=== PATIENT | female | born 1945 | race Caucasian/White ===

== ENCOUNTER 2021-05-24 13:20 | Emergency (ER) | payer MEDICARE, SELFPAY ==
[2021-05-24] VITALS (8 sets, daily range): BP systolic 119–148; BP diastolic 58–78; PULSE 59–75; RESP 13–21; TEMP 36.9; O2SAT 98–100; BMI 17.1
--- NOTE | 2021-05-24 13:34 | DI.RAD.S_ITS ---
PROCEDURE: XR CHEST 1V INDICATIONS: chest pain TECHNIQUE: One view of the chest was acquired. COMPARISON: [facility], CR, XR CHEST 2VW, 11/06/2015, 21:12. [facility], CR, XR CHEST 1 VIEW, 04/30/2021, 20:40. [facility], CR, XR CHEST 1 VIEW, 05/10/2021, 16:16. FINDINGS: Surgical changes and devices: None. Lungs and pleura: Lungs are clear, yet hyperexpanded. No pleural effusions or pneumothorax. Mediastinum: The cardiac contours are within normal limits. The aorta demonstrates calcification and tortuosity. Bones and chest wall: Age-appropriate bony degenerative changes are seen. No suspicious bony lesions. Overlying soft tissues appear unremarkable. IMPRESSION: Hyperexpanded lungs, without an acute cardiopulmonary process identified. Dictated by: Hilario Velasquez M.D. on 05/24/2021 at 12:50 Approved by: Hilario Velasquez M.D. on 05/24/2021 at 12:51
[2021-05-24 13:49] LABS: Add Manual Diff / Slide Review NO; Basophils Absolute Auto 100 /uL (0-100); Basophils Percent Auto 0.7 % (0-2); Eosinophils Absolute Auto 100 /uL (0-450); Eosinophils Percent Auto 0.9 % (2-4); Hematocrit 35.9 % (36-46); Hemoglobin 12.1 g/dL (12.0-16.0); Lymphocytes Absolute Auto 1500 /uL (1100-4500); Lymphocytes Percent Auto 18.3 % (25-40); Mean Corpuscular HGB Conc 33.6 % (30-36); Mean Corpuscular Hemoglobin 28.8 PG (26-34); Mean Corpuscular Volume 85.8 fL (80-100); Monocytes Absolute Auto 800 /uL (0-900); Monocytes Percent Auto 10.5 % (3-14); Neutrophils Absolute Auto 5500 /uL (1500-7000); Neutrophils Percent Auto 69.6 % (50-75); Platelet Count 192 X10^3/uL (150-400); Red Blood Cell Count 4.19 X10^6/uL (4.0-5.2); Red Cell Distribution Width 13.4 % (11.6-14.8); White Blood Cell Count 7.9 X10^3/uL (4.5-11.0)
[2021-05-24 13:54] LABS: Prothrombin Time 11.6 SECONDS (10.1-12.7)
[2021-05-24 13:56] LABS: PTT Partial Thromboplastin Tim 30 SECONDS (26.4-36.2)
[2021-05-24 14:09] LABS: Alanine Aminotransferase 14 IU/L (<35); Albumin 4.1 g/dL (3.5-5.0); Albumin Globulin Ratio 1.2 (1.0-2.8); Alkaline Phosphatase 120 U/L (38-126); Aspartate Aminotransferase 25 IU/L (14-36); BUN Creatinine Ratio 21.2 (6-22); Bilirubin Total 0.5 mg/dL (0.2-1.3); Blood Urea Nitrogen 22 mg/dL (7-17); Calcium 9.1 mg/dL (8.4-10.2); Carbon Dioxide 26 mmol/L (22-32); Chloride 103 mmol/L (98-107); Creatine Kinase 33 U/L (30-135); Estimated Glomerular Filt Rate 51.8 mL/min (>60); Globulin 3.3 g/dL (1.7-4.1); Glucose 94 mg/dL (80-110); HEMOLYSIS < 15 (0-50); Lipase 125 U/L (23-300); Sodium 138 mmol/L (137-145); Total Protein 7.4 g/dL (6.3-8.2)
[2021-05-24 14:18] LABS: Troponin I < 0.012 ng/mL (0.01-0.034)
--- NOTE | 2021-05-24 14:19 | ED_ITS ---
HPI - Chest Pain General Chief Complaint: Chest Pain Stated Complaint: Left shoulder/arm/neck/chest area x4 days Time Seen by Provider: 05/24/21 13:41 History of Present Illness HPI narrative: Patient is a 76-year-old female who was diagnosed with COVID, and April. Today she presents with 4 days left shoulder pain and rib pain. She denies any injury. It hurts more when she moves it. She has been taking Aleve intermediately which seems to help. She denies any fever or chills. No numbness tingling or weakness. She says it hurts when she breathes. Pain sometimes is in her ribs when she takes deep breath. She denies any palpitations. She took ibuprofen a few hours prior to arrival it seems to help. Review of Systems Review of Systems Narrative: GENERAL: Denies chills, fatigue, malaise, fever, sweats, travel HEENT: Denies sinus pain, ear pain, sore throat, difficulty swallowing, neck pain RESPIRATORY: Denies dyspnea, cough, wheezing, hemoptysis, sputum. CARDIOVASCULAR: Denies chest pain, palpitations, orthopnea, edema GASTROINTESTINAL: Denies nausea, vomiting, abdominal pain, diarrhea, constipation, melena. : Denies dysuria, frequency, incontinence, hematuria, urinary retention, flank pain. MUSCULOSKELETAL: See HPI SKIN: No rash, no erythema, no pruritus NEUROLOGIC: Denies weakness, dizziness, headache, numbness, change in speech, confusion PSYCHIATRIC: No concerning psychosocial issues. 12 point review of systems is negative except for those stated above and HPI Patient History Social History Smoking Status: Never smoker Smoking Status: Never smoker Substance Use Type: does not use Exam Initial Vital Signs Initial Vital Signs: Vital Signs Pulse Rate 75 05/24/21 13:31 Pulse Oximetry 99 05/24/21 13:31 GENERAL: Alert well-appearing 76-year-old female in no acute distress. HEENT: Head atraumatic,EOMI, pupils reactive, face symmetric, moist mucous membranes CARDIOVASCULAR: Regular rate and rhythm without murmurs, rubs or gallops. RESPIRATORY: Breath sounds equal bilaterally, no wheezes rales or rhonchi. ABDOMEN: Soft, nontender. Normoactive bowel sounds all 4 quadrants. No guarding or rebound. EXTREMITIES: Normal range of motion, no clubbing or edema. Neurovascularly intact. Left shoulder no significant swelling or redness full range of motion distal radial pulse intact NEUROLOGICAL: Alert and oriented x4.Normal gait and speech. SKIN: Warm, dry, no laceration, no petechiae, no rashes or lesions. Scores HEART Score Heart Score history: Slightly Suspicious Heart Score EKG: Normal Heart Score Age: > or = 65 years old Heart Score risk factors: No known risk factors Heart Score troponin: < or = to normal limit Heart Score Total: 2 Course Orders Ordered: ED Orders 05/24/21 13:34 XR chest 1V Stat EKG-12 Lead Stat 05/24/21 13:37 Complete Blood Count AUTO DIFF Stat Comprehensive Metabolic Panel Stat Lipase Stat Magnesium Stat Partial Thromboplastin Time Stat Prothrombin Time INR Stat Troponin & CK Cardiac Panel Stat 05/24/21 14:27 XR shoulder LT min 2V Stat Vital Signs Vital signs: Vital Signs - 8 hr 05/24/21 13:31 05/24/21 13:32 05/24/21 13:41 Temperature 98.4 F Pulse Rate 75 75 72 Respiratory Rate 16 Blood Pressure 148/72 H 142/78 H Pulse Oximetry 99 99 99 05/24/21 14:00 Temperature Pulse Rate 70 Respiratory Rate 21 Blood Pressure Pulse Oximetry 100 MDM - Chest Pain Lab Data Result diagrams: 05/24/21 13:37 05/24/21 13:37 Labs: Lab Results 05/24/21 05/24/21 05/24/21 Range/Units 13:37 13:37 13:37 WBC 7.9 (4.5-11.0) X10^3/uL RBC 4.19 (4.0-5.2) X10^6/uL Hgb 12.1 (12.0-16.0) g/dL Hct 35.9 L (36-46) % MCV 85.8 (80-100) fL MCH 28.8 (26-34) PG MCHC 33.6 (30-36) % RDW 13.4 (11.6-14.8) % Plt Count 192 (150-400) X10^3/uL Neut % (Auto) 69.6 (50-75) % Lymph % (Auto) 18.3 L (25-40) % Maries % (Auto) 10.5 (3-14) % Eos % (Auto) 0.9 L (2-4) % Baso % (Auto) 0.7 (0-2) % Neut # (Auto) 5500 (9058-4665) /uL Lymph # (Auto) 1500 (9858-9189) /uL Maries # (Auto) 800 (0-900) /uL Eos # (Auto) 100 (0-450) /uL Baso # (Auto) 100 (0-100) /uL PT 11.6 (10.1-12.7) SECONDS INR 1.0 (0.9-1.3) APTT 30 (26.4-36.2) SECONDS Sodium 138 (137-145) mmol/L Potassium 4.0 (3.4-5.1) mmol/L Chloride 103 (98-107) mmol/L Carbon Dioxide 26 (22-32) mmol/L BUN 22 H (7-17) mg/dL Creatinine 1.04 (0.52-1.04) mg/dL Estimated GFR 51.8 L (>60) mL/min BUN/Creatinine Ratio 21.2 (6-22) Glucose 94 (80-110) mg/dL Calcium 9.1 (8.4-10.2) mg/dL Magnesium 2.0 (1.6-2.3) mg/dL Total Bilirubin 0.5 (0.2-1.3) mg/dL AST 25 (14-36) IU/L ALT 14 (<35) IU/L Alkaline Phosphatase 120 (38-126) U/L Total Creatine Kinase 33 (30-135) U/L CK-MB (CK-2) TNP CK-MB (CK-2) Rel Index TNP Troponin I < 0.012 (0.01-0.034) ng/mL Total Protein 7.4 (6.3-8.2) g/dL Albumin 4.1 (3.5-5.0) g/dL Globulin 3.3 (1.7-4.1) g/dL Albumin/Globulin Ratio 1.2 (1.0-2.8) Lipase 125 (23-300) U/L Imaging Data Chest x-ray: Radiologist's Impression: PROCEDURE:? XR CHEST 1V ? INDICATIONS:? chest pain ? TECHNIQUE:? One view of the chest was acquired.? ? COMPARISON:? [facility], CR, XR CHEST 2VW, 11/06/2015, 21:12.? [facility], CR, XR CHEST 1 VIEW, 04/30/2021, 20:40.? [facility], CR, XR CHEST 1 VIEW, 05/10/2021, 16:16. ? FINDINGS:? ? Surgical changes and devices:? None.? ? Lungs and pleura:? Lungs are clear, yet hyperexpanded.? No pleural effusions or pneumothorax.? ? Mediastinum:? The cardiac contours are within normal limits. The aorta demonstrates calcification and tortuosity. ? Bones and chest wall:? Age-appropriate bony degenerative changes are seen.? No suspicious bony lesions.? Overlying soft tissues appear unremarkable.? IMPRESSION:? ? Hyperexpanded lungs, without an acute cardiopulmonary process identified. ? ? Dictated by: Hilario Velasquez M.D. on 05/24/2021 at 12:50? Extremity x-ray #1: Radiologist's Impression: PROCEDURE:? XR SHOULDER LT MIN 2V ? INDICATIONS:? pain ? TECHNIQUE:? 3 views of the shoulder were acquired.? ? COMPARISON:? None. ? FINDINGS:? ? Bones:? Diffuse osteopenia.? No acute fractures or dislocations.? No suspicious bony lesions.? Visualized ribs appear intact.? Mild degenerative changes of the left acromioclavicular joint. Coracoclavicular and acromioclavicular intervals are maintained. ?Moderate degenerative changes of the glenohumeral joint with inferomedial spurring of the left humeral head. ? Soft tissues:? No suspicious soft tissue calcifications.? ? IMPRESSION:? ? Left shoulder without acute fracture or dislocation. Left acromioclavicular and glenohumeral osteoarthrosis. Diffuse osteopenia. ? ? ? Dictated by: Tate Marquez M.D. on 05/24/2021 at 14:49 ? ? Approved by: Tate Marquez M.D. on 05/24/2021 at 14:51 ? ECG Data Interpretation: Normal sinus rhythm rate [address] changes, no priors to compare MDM Narrative Medical decision making narrative: The patient has had intermittent chest discomfort and left shoulder pain that is worse with movement off and on for the last few days that improved with Aleve. At this time her cardiac workup is negative signs and symptoms are most consistent with a musculoskeletal issue rather than cardiac. This is may be a reactive arthritis possibly from COVID. However at this time she appears well her pain is controlled she took ibuprofen just prior to arrival in is not having pain. She is afebrile the joint is not erythematous do not believe that she is septic or has a septic joint at this time. 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 Which is some inflammation in her joints. *Continue to take medications as directed Aleve 500 mg every 12 hours *Follow up with your primary care provider in 2-3 days *Return to ER if you should have increase redness, fever, numbness tingling or weakness or any new, worsening or concerning symptoms Referrals: Leila Ibarra PA-C [Primary Care Provider] -
--- NOTE | 2021-05-24 14:27 | DI.RAD.S_ITS ---
PROCEDURE: XR SHOULDER LT MIN 2V INDICATIONS: pain TECHNIQUE: 3 views of the shoulder were acquired. COMPARISON: None. FINDINGS: Bones: Diffuse osteopenia. No acute fractures or dislocations. No suspicious bony lesions. Visualized ribs appear intact. Mild degenerative changes of the left acromioclavicular joint. Coracoclavicular and acromioclavicular intervals are maintained. Moderate degenerative changes of the glenohumeral joint with inferomedial spurring of the left humeral head. Soft tissues: No suspicious soft tissue calcifications. IMPRESSION: Left shoulder without acute fracture or dislocation. Left acromioclavicular and glenohumeral osteoarthrosis. Diffuse osteopenia. Dictated by: Tate Marquez M.D. on 05/24/2021 at 14:49 Approved by: Tate Marquez M.D. on 05/24/2021 at 14:51
== END 2021-05-24 15:38 | disposition home or self-care (01) ==
PROVIDERS: Emergency Provider Emergency Medicine; PCP Physician Assistant
DX: M02.312 Reiter's disease, left shoulder (principal); R07.9 Chest pain, unspecified
CPT/HCPCS: 36415; 71045; 73030; 80053; 82550; 83690; 83735; 84484; 85025; 85610; 85730; 93005; 93010; 99284